=== PATIENT | female | born 1990 | race Caucasian/White ===

== ENCOUNTER 2019-04-07 11:56 | Emergency (ER) | payer MEDICAID ==
[~2019-04-07] VITALS: Ht 162.6 cm; Wt 115.0 kg
[2019-04-07 12:37] VITALS: BP 119/45; Ht 162.6 cm; Wt 115.0 kg
[2019-04-08 12:22] VITALS: Ht 162.6 cm; Wt 115.0 kg
== END 2019-04-07 16:55 | disposition home or self-care (01) ==
LOC: D.ER 11:56
DX: O26.90 Pregnancy related conditions, unspecified, unspecified trimester (principal); K59.00 Constipation, unspecified

== ENCOUNTER 2019-04-08 10:42 | Outpatient (CLI) | payer MEDICAID ==
[~2019-04-08] VITALS: Ht 162.6 cm; Wt 115.5 kg
[2019-04-08 12:22] VITALS: BP 113/66; Ht 162.6 cm; Wt 115.5 kg
--- NOTE | 2019-04-08 13:04 | NUR ---
1250 ENEMA'S COMPLETED. PATIENT CLEANED OUT SOME IMPACTION WHILE SITTING ON TOILET. EXCELLENT RESULTS OUT. NO OTHER NEEDS ASSESSED. TAKEN OUT VIA WC AND ASSISTED TO CAR. INSTRUCTION SHEETS AND INFORMATION GIVEN. DC'D HOME. ADVISED TO CALL DR TELLEZ IF ANY PROBLEMS.
== END 2019-04-08 12:50 | disposition home or self-care (01) ==
LOC: D.OPS 10:42
PROVIDERS: ATTEND Student in an Organized Health Care Education/Training Program
DX: K59.00 Constipation, unspecified (principal)

== ENCOUNTER 2019-09-05 22:33 | Emergency (ER) | payer MEDICAID ==
[~2019-09-05] VITALS: Ht 162.6 cm; Wt 122.7 kg
[~2019-09-05 22:33] MED LIST: BUPRENORPHINE HC8 MG SL; COLACE100 MG PO; MIRALAX17 GM PO; ZOFRAN4 MG PO
[2019-09-05 22:51] VITALS: Ht 162.6 cm; Wt 122.7 kg
[2019-09-05] MEDS ORDERED: ZPAK PO (22:53)
[2019-09-05 23:22] LABS: BILIRUBIN NEGATIVE (NEGATIVE); GLUCOSE NEGATIVE (NEGATIVE); KETONE NEGATIVE (NEGATIVE); NITRITE NEGATIVE (NEGATIVE); UROBILINOGEN 8 mg/dL (NORMAL)
[2019-09-05] MEDS ORDERED: AZITHROMYCIN500 MG PO (23:52)
[2019-09-06 01:55] VITALS: BP 118/60
== END 2019-09-06 00:15 | disposition home or self-care (01) ==
LOC: D.ER 22:33
PROVIDERS: Family Medicine
DX: O99.513 Diseases of the respiratory system complicating pregnancy, third trimester (principal); Z3A.33 33 weeks gestation of pregnancy; R05 Cough; R09.81 Nasal congestion; J20.9 Acute bronchitis, unspecified